=== PATIENT | female | born 2000 | race African-American/Black ===

== ENCOUNTER 2023-05-05 11:23 | Inpatient (IN) | payer OTHER ==
[2023-05-05 11:50] VITALS: BMI 18.8
[2023-05-05] MEDS ORDERED: NALOXONE HCL (KLOXXADO) 8 MG SPRAY NS PRN (13:01)
[2023-05-05] MEDS ORDERED: BENZONATATE 200 MG CAPSULE PO PRN (13:01)
[2023-05-05] MEDS ORDERED: DICYCLOMINE HCL 10 MG CAPSULE PO PRN (13:01)
[2023-05-05] MEDS ORDERED: MAG HYDROX/AL HYDROX/SIMETH 30 ML UNIT-DOSE CUP PO PRN (13:01)
[2023-05-05] MEDS ORDERED: hydrOXYzine PAMOATE 25 MG CAPSULE (FP) PO PRN (13:01)
[2023-05-05] MEDS ORDERED: ACETAMINOPHEN 325 MG TABLET (FP) PO PRN (13:01)
[2023-05-05] MEDS ORDERED: NICOTINE POLACRILEX 2 MG GUM BUC PRN (13:01)
[2023-05-05] MEDS ORDERED: METHOCARBAMOL 500 MG TABLET PO PRN (13:01)
[2023-05-05] MEDS ORDERED: BENZOCAINE/MENTHOL (CHLORASEPTIC ) LOZENGE MM PRN (13:01)
[2023-05-05] MEDS ORDERED: guaiFENesin 600 MG TABLET.ER (FP) PO PRN (13:01)
[2023-05-05] MEDS ORDERED: LOPERAMIDE HCL 2 MG CAPSULE PO PRN (13:01)
[2023-05-05] MEDS ORDERED: BISMUTH SUBSALICYLATE 524 MG/30 ML PO PRN (13:01)
[2023-05-05] MEDS ORDERED: NALOXONE HCL 0.4 MG/ML VIAL IM PRN (13:01)
[2023-05-05] MEDS ORDERED: IBUPROFEN 600 MG TABLET (FP) PO PRN (13:01)
[2023-05-05] MEDS ORDERED: IBUPROFEN 400 MG TABLET (FP) PO PRN (13:01)
[2023-05-05] MEDS ORDERED: POLYETHYLENE GLYCOL (HEALTHYLAX) 3350 17 GM PACKET PO PRN (13:01)
[2023-05-05] MEDS ORDERED: ONDANSETRON *ODT* 4 MG TABLET SL PRN (13:01)
[2023-05-05] MEDS ORDERED: MAGNESIUM HYDROX 2400MG/30ML ORAL SUSPENSION 30 ML CUP PO PRN (13:01)
[2023-05-05 16:53] VITALS: RESP 16
[2023-05-05 21:41] VITALS: BP 101/66; PULSE 83; TEMP 98.9
[2023-05-05] MEDS ORDERED: MELATONIN 5 MG TABLETS PO SCH (22:00)
[2023-05-05] MEDS ORDERED: THIAMINE HCL 100 MG TABLET (FP) PO SCH (22:00)
[2023-05-06] MEDS ORDERED: PRENATAL VITAMINS W/ FOLIC ACID TABLET (FP) PO SCH (10:00)
== END 2023-05-05 21:58 | disposition left against medical advice (07) | DRG 770 ==
LOC: YASAS 11:23 → Y3N 13:08
PROVIDERS: ADMIT Allergy & Immunology; ATTEND Surgery
PROC: HZ2ZZZZ Detoxification Services for Substance Abuse Treatment (ICD-10-PCS; principal; 2023-05-05)
DX: F11.20 Opioid dependence, uncomplicated (principal); Z72.0 Tobacco use; Z86.59 Personal history of other mental and behavioral disorders; Z28.310 Unvaccinated for COVID-19; Z28.9 Immunization not carried out for unspecified reason
CPT/HCPCS: 81025; 87635